=== PATIENT | female | born 1990 | race African-American/Black ===

== ENCOUNTER 2019-09-16 04:00 | Emergency (ER) | payer MEDICAID, OTHER ==
[~2019-09-16] VITALS: Ht 172.7 cm; Wt 66.0 kg
[2019-09-16] MEDS ORDERED: LIDOCAINE HCL 1% 20ML VIAL (Pyxis) INJ INFIL ONE (05:15)
[2019-09-16 06:01] VITALS: BP 115/74
== END 2019-09-16 06:04 | disposition home or self-care (01) ==
LOC: ER 04:00
DX: S01.21XA Laceration without foreign body of nose, initial encounter (principal); J45.909 Unspecified asthma, uncomplicated; F17.210 Nicotine dependence, cigarettes, uncomplicated; Y04.0XXA Assault by unarmed brawl or fight, initial encounter; Y93.89 Activity, other specified; Y92.89 Other specified places as the place of occurrence of the external cause
CPT/HCPCS: 12013; 99283; A4217; J3490; Z7610

== ENCOUNTER 2019-09-20 11:02 | Emergency (ER) | payer MEDICAID, OTHER | END 2019-09-20 12:12 | disposition left against medical advice (07) | LOC: ER 11:02 | DX: R68.89 Other general symptoms and signs (principal); Z53.21 Procedure and treatment not carried out due to patient leaving prior to being seen by health care provider ==

== ENCOUNTER 2019-09-20 13:27 | Emergency (ER) | payer OTHER ==
[~2019-09-20] VITALS: Ht 167.6 cm; Wt 60.0 kg
[2019-09-20 14:38] VITALS: BP 145/80
== END 2019-09-20 16:04 | disposition left against medical advice (07) ==
LOC: ER 13:27
DX: S01.21XD Laceration without foreign body of nose, subsequent encounter (principal); Z53.21 Procedure and treatment not carried out due to patient leaving prior to being seen by health care provider; X58.XXXD Exposure to other specified factors, subsequent encounter

== ENCOUNTER 2019-09-23 11:49 | Emergency (ER) | payer OTHER ==
[~2019-09-23] VITALS: Ht 172.7 cm; Wt 66.0 kg
[2019-09-23 12:22] VITALS: BP 119/83
== END 2019-09-23 18:59 | disposition left against medical advice (07) ==
LOC: ER 11:49
DX: Z53.21 Procedure and treatment not carried out due to patient leaving prior to being seen by health care provider (principal)

== ENCOUNTER 2019-09-28 21:59 | Emergency (ER) | payer OTHER | END 2019-09-28 23:11 | disposition left against medical advice (07) | LOC: ER 21:59 | DX: Z53.21 Procedure and treatment not carried out due to patient leaving prior to being seen by health care provider (principal) ==